=== PATIENT | male | born 1980 | race Two or more races ===

== ENCOUNTER 2021-04-04 21:13 | Inpatient (IN) | payer BC ==
[~2021-04-04] VITALS: Ht 188 cm; Wt 137.2 kg
[~2021-04-04 21:13] MED LIST: BLOOD GLUCOSE1 EAC1 MISC; CIPROFLOXACIN500 MG PO; KLOR-CON M2020 MEQ PO; LANCETS1 EAC2 MISC; LOMOTIL TABLET1 EACH PO; METFORMIN HCL500 MG PO; METRONIDAZOLE500 MG PO; NORVASC10 MG PO
[2021-04-04] MEDS ORDERED: ADVIL200 MG PO (21:40)
--- NOTE | 2021-04-05 03:11 | NUR ---
pt admitted to room 115 via stretcher from ED. pt ambulated to br, having loose stools, on room air. on Airborne isolation precautions
--- NOTE | 2021-04-05 03:15 | NUR ---
IN TO GET VITALS, PT BACK FROM THE TOILET, BACK TO BED
--- NOTE | 2021-04-05 04:23 | NUR ---
in to nafisa pt's phone off the floor, no further needs at this time
--- NOTE | 2021-04-05 04:51 | NUR ---
PT ADMITTEAD AT 0300, OON ROOM AIR, LUNGS CRACKLES AND WHEEZING T/O, NO SOB NOTED WITH EXERTION. IVF BOLUS STARTED IN ED COMPLETED, RECEIVED COVID ABG REAGENT IV MED. TOLERATED WELL, COVID+ AIRBORNE ISOLATION PRECAUTIONS IN PLACE. IVF INFUSING. HAD LOOSE STOOLS, DARK URINE. TOLERATING SIPS OF FLUIDS, NO C/O HSIEH OR N/V SINCE ADMIT. USES CALL LIGHT, ALERT AND ORIENTED
--- NOTE | 2021-04-05 06:30 | NUR ---
DR NAVARRETE NOTIFIED OF CRITICAL POTASSIUM LAB LEVEL OF 2.5. "OH OK, ILL WAIT FOR THE REST OF THE LEVELS AND THEN ASSESS"
--- NOTE | 2021-04-05 07:35 | NUR ---
REPORT RECEIVED FROM ASHISH DOSS. PT RESTING ON BACK WITH EYES CLOSED. RESPIRATIONS EVEN AND UNALBORED. O2 SATURATIONS 89-91% ON ROM AIR. HEART RATE REGULAR WITH HEAR RATE OF 65. PT ALLOWED TO REST AT THIS TIME. CALL LIGHT WITHIN REACH. BED RAILS UP.
--- NOTE | 2021-04-05 08:30 | NUR ---
update from Rn and Dr. Sifuentes in 829 meeting. No resp symptoms, not feeling well.
--- NOTE | 2021-04-05 09:06 | NUR ---
MORNING ASSESSMENT AND MEDICAITONS DUE. PT RESTING IN BED ON RIGHT SIDE. PT DENIES PAIN AND NAUSEA. IV IS NOT LOCATED IN RIGHT HAND, LOCATED IN RIGHT AC. WNL, NO S/S OF PHLEBITIS NOTED. LUNG SOUNDS MOSTLY CLEAR, DEMINISHED IN LOWER LOBES. SMALL INSPIRATORY WHEEZE NOTED AT TIME ON RIGHT SIDE. PRONING EDUCATION DONE WITH PT. PT VERBALIZES UNDERSTANDING AND STATES HE PLANS TO PRONE LATER TODAY. I.S. PROVIDED. PT ABLE TO REACHE 1250 X4. COUGH INCREASED WITH IS USE, COUGH NOW PRODUCTIVE WITH CLEAR SPUTUME NOTED. PT REMAINS ON ROOM AIR WITH O2 SATURATIONS 91-96%. DIARRHEA CONTINUES WITH ADDITIONAL LARGE LIQUID BROWN STOOL NOTED THIS MORNING. PT HAS DEPENDS IN PLACE AND SMALL INCONTINANT EPISODES HAPPEN. NO UNSUSAL MUSCLE TWITCHES NOTED. PT DENIES LEG CRAMPS. NEGATIVE CHVOSTEK SIGN. PT SITTING ON EDGE OF BED TO EAT BREAKFAST. NO ADDITIONAL REQEUSTS OR COMPLAINTS. CALL LIGHT WIHTIN REACH. BED RAILS UP.
--- NOTE | 2021-04-05 10:46 | NUR ---
THIS RN TO ROOM TO CHECK ON PT. PT RESTING ON RIGHT SIDE WITH EYES CLOSED. PT ENCORUAGED TO PRONE. VITAL SIGNS STABLE. PT ASSISTED INTO PRONE POSITION, SUPPORTED WITH PILLOWS. OXGYEN SATURATIONS 90-95% ON ROOM AIR. CALL LIGHT WITHIN REACH. BED RAILS UP. PT DENIES ADDITIONAL REQUESTS OR COMPLAINTS.
--- NOTE | 2021-04-05 11:25 | NUR ---
MD UPDATED ON PTS STATUS AND TEMPERATURE. NO NEW ORDERS. TYLENOL AND COUGH MEDICATION GIVEN. PT COUGHING FREQUENTLY WITH OCCATIONAL CLEAR THICK SPUTUM. OXYGEN SATURATIONS 90-94% ON ROOM AIR. CALL LIGHT WITHIN REACH. BED RAILS UP. NO ADDITIONAL REQUESTS OR COMPLAINTS.
--- NOTE | 2021-04-05 11:59 | NUR ---
LAB CALLED TO CONFIRM THAT THEY WILL DRAW 1200 LABS. TECHNITIAN STATES THEY WILL BE DOWN SHORTLY TO DRAW LABS.
--- NOTE | 2021-04-05 13:17 | NUR ---
THIS RN TO ROOM TO CHECK ON PT. PT RESTING ON RIGHT SIDE WITH EYES CLOSED, RESPIRATIONS EVEN AND UNLABORED. OXYGEN SATRUATION OF 94% ON ROOM AIR. PT HAS REMOVED TELEMETRY MONITORING STICKERS. NEW STICKERS PLACED. TEMPERATURE REASSESED, REMAINS ELEVATED. ADDITIONAL MEDICATION GIVEN (SEE MAR). ICE WATER REFILLED. NO ADDITIONAL REQUESTS OR COMPLAINTS. CALL LIGHT WITHIN REACH. BED RAILS UP.
--- NOTE | 2021-04-05 13:20 | NUR ---
MD UPDATED ON PTS STATUS AND FEVER. NEW ORDERS GIVEN FOR IBUPROFEN. ORDERS ENTERED. TO BE GIVEN BY CHARGE NURSE, NOAH, WHEN VARIFIED.
--- NOTE | 2021-04-05 13:30 | NUR ---
PTS DAVID, CALLED FOR UPDATE. DAVID STATES PTS IS "PRETTY CONFUSED" AND PT HAS BEEN REPORTING THINGS THAT ARE NOT TRUE. DAVID UPDATED ON PTS CONDITION. DAVID STATES HER QUESTIONS HAVE BEEN ANSWERED.
--- NOTE | 2021-04-05 13:39 | NUR ---
DR NAVARRETE CALLED TO INQUIRE IF IBUPROFEN IS OK TO GIVE WITH PTS KIDNEY STATUS. AWAITING CALL BACK.
--- NOTE | 2021-04-05 14:00 | NUR ---
CALL MADE TO DR LANDON BECK. DR MERCERED USE FOR FEVER. PT TEMP RECHECKED AT 102.9. 400MG MOTRIN ADMISNTERED. NEW NS BAG HUNG. PT WITH LOOSE BM AND 300ML URINE OUTPUT. DENEIS ANY NEEDS. WILL CONTINUE TO MONITOR.
--- NOTE | 2021-04-05 14:20 | NUR ---
AFTERNOON ASSESSMENT DUE. THIS RN TO ROOM. CHARGE NURSE STATES SHE SPOKE WITH MD AND WAS CLEARED TO GIVE IBUPROFEN. COUGH SYRUP ALSO GIVEN. THIS RN TO ROOM. PT RESTING ON RIGHT SIDE. HEAD OF BED ELEVATED TO 23 DEGREES. PT DENIES PAIN AND NAUSEA. PT REPORTS HE HAS ONE EPOSODE OF EMESIS THIS MORNING AFTER EATING BREAKFAST. PT ADVISED TO INFORM NURSING STAFF IF NAUSEA OR EMESIS RETURNS. IV CONTINUES INFUSING INTO RIGHT AC (NOT RIGHT HAND), WNL, NO S/S OF PHLEBITIS NOTED. PTS REORTED OVER [facility] PHONE THAT PT HAS BEEN CONFUSED. PT ORIENTED TO ALL AT THIS TIME AND COMMUNICATING CLEARLY AND APPROPRIATLY. PT REPORTS "I HAD FOGGY THINKING WHEN THIS ALL STARTED." WILL CONTINUE TO MONITOR. LUNG SOUND CLEAR IN UPPER LOBES WITH COURSE SOUNDS NOTED IN BASES. OXYGEN SATURATION 89-94% ON ROOM AIR, CPOX IN PLACE. PT REACHES 1500ML ON I.S. X5 WITH USE ENCORUAGED BY THIS RN. PT REPORTS COUGH IS "BETTER" AFTER TAKING COUGH MEDICATION. DIARRHEA CONTINUES WITH ADDITIONAL LIGHT BROWN LIQUID STOOL NOTED THIS AFTERNOON. PT REPORS "A LITTLE" IMPROVEMENT WITH DIARRHEA AND STATES HE IS NOW "PASSING FRAN INSTEAD OF JUST POOP." DEPENDS REMAIN IN PLACE. PT ENCORUAGED TO PRONE THIS AFTERNOON, DECLINES AT THIS TIME. CALL LIGHT WITHIN REACH. BED RAILS UP. NO ADDITIONAL REQUESTS OR COMPLAINTS.
--- NOTE | 2021-04-05 14:35 | EKG ---
[facility] [address] [place], [place] [address] Signed No QRS complexes found, no ECG analysis possible No previous ECGs available Confirmed by YESSI NAVARRETE MD ([id number]) on 04/05/2021 2:35:12 PM Electronically Signed By: YESSI NAVARRETE MD 04/05/21 1435 PATIENT NAME: KARSON MELCHOR [facility] Electrocardiogram DATE OF : 84 PHYSICIAN: YESSI NAVARRETE MD REPORT #: [id number] REPORT IS CONFIDENTIAL AND NOT TO BE RELEASED WITHOUT AUTHORIZATION
--- NOTE | 2021-04-05 15:05 | NUR ---
CONTINUOUS PULSE OX ALARMING. THIS RN TO ROOM. MONITOR IN ROOM STATES 92% TELEMETRY MONITORING STATES 87%. TELEMETRY UNIT CHANGED. NO CHANGES IN OXYGENATION. PT PLACED ON 2L O2 BY IN WITH OXGYEN SATRUATIONS ABOVE 90% ON BOTH MONITORS. CURRENTLY 91% ON 2L O2 BY IN. TEMPERATURE REASSESSED, NOW 101.3 DEGREES FARINHEIGHT. PT ASSISTED INTO PRONING POSITON WITH OXYGEN SATURATIONS CLIMBING TO 95%. NO ADDITIONAL REQUESTS OR COMPLAINTS. CALL LIGHT WITHIN REACH. BED RAILS UP.
--- NOTE | 2021-04-05 16:31 | NUR ---
THIS RN TO ROOM TO CHECK ON PT. PT RESTING IN BED ON BACK WITH HEAD OF BED ELEVATED TO 21 DEGREES. PT ALERT AND OREINTED AND STATES HE FEELS "MUCH BETTER." TEMPERATURE REASSESSED, NOW 97.9 DEGREES FARIENHEIGHT. OXYGEN SATURATIONS 90-93% ON 2L O2 BY NC. PT DEMONSTRATUES USE. OF I.S. REACHING 1750 X1 AND 1500 X2. MEDICATIONS GIVEN. PT DENIES ADDITIONAL REQUESTS OR COMPLAINTS. CALL LIGHT WITHIN REACH. BED RAILS UP.
--- NOTE | 2021-04-05 16:42 | NUR ---
MED REC COMPLETE
--- NOTE | 2021-04-05 17:30 | NUR ---
CALLED FOR UPDATE ON PT STATUS. MD REQUESTS PT BE WEANED TO ROOM AIR TO SEE HOW OXYGENATION MAINTAINS WHILE AWKAE. THIS RN TO ROOM. PT WEANED TO ROOM AIR WITH OXYGEN SATRUATIONS 93-95% ON ROOM AIR. PT REMAINS ON ROOM AIR AT THIS TIME. CALLED AND UPDATED. MEDICATIONS GIVEN. PT RESTING IN BED. WATCHING TV. DINNER ORDER PLACED. NO ADDITIONAL REQUESTS OR COMPLAINTS. CALL LIGHT WITHIN REACH.
--- NOTE | 2021-04-05 18:00 | NUR ---
PTS OXYGEN SATURATIONS DROPPING TO 89-90% WHILE AWAKE AND ON ROOM AIR. MD CALLED AND UPDATED. NEW ORDERS PLACED. PT PLACED BACK ON 2L O2 BY NC. MEDICATIONS GIVEN BY ASHISH SANTO. PT DENIES ADDITIONAL REQUESTS OR COMPLAINTS. OXYGEN SATURATIONS CLIMB TO 93% ON 2L O2 BY NC. PT AWAKEN AND WATCHING TV. CALL LIGHT WITHIN REACH. BED RAILS UP.
--- NOTE | 2021-04-05 18:32 | NUR ---
PTS DAUGHTER DAVID CALLED AND UPDATED ON PTS STATUS. DAVID STATES PT WAS ALTERNATING IBUPROFEN AND TYELNOL EVERY THREE HOURS AT HOME WELL [employer] AND [place]QU[place]. DAVID VERBALIZES UNDERSTANDING OF CURRENT THERAPIES. DAVID STATES HER QUESTIONS HAVE BEEN ANSWERED.
--- NOTE | 2021-04-05 18:39 | NUR ---
PT HERE FOR PEREZ, COVID, AND ELECTROLYTE IMBALANCES. PT UP WITH STAND BY ASSIST TO BEDSIDE COMODE AND RESTROOM THIS SHIFT. PT HAVING FREQUENT BOUTS OF DIARRHEA. PT TOELRATING REGUALR DIET WITH MINIMAL APPITITE. PT REMAINS ON TELEMETRY MONITORING WITH NORMAL SINUS RHYTHEM NOTED SO FAR THIS SHFIT. PT PLACE DON 2L O2O BY NC AFTER DROPING TO 87-91% ON ROOM AIR EVEN WHILE AWAKE. DEXAMETHASONE STARTED, REMDESIVIR ORDERED. IV HYDRATION CONTINUES. PT REPORTS ONE EPSIDOE OF EMESIS THIS SHIFT, UNWITNESSED. PRN PAIN MEDICATIONS GIVEN FOR FEVER. PT VODING QUANTITY SUFFICIENT. PTS FAMILY UPDATED X2. PT PARTICIPATING IN PRONING PROTOCOLS AND USES CALL LIGHT APPRPRIATLY.
--- NOTE | 2021-04-05 19:24 | NUR ---
REPORT GIVEN TO ASHISH DOSS WHO IS ASSUMING CARE OF PT.
--- NOTE | 2021-04-05 21:08 | NUR ---
alert and oriented, O2 2LNC, lungs with crackles bilat. moist productive cough of thick yellow oral drainage. medicated with robitussin syrup. sl intact, ivf infusing, abd large soft, HEA, having liquid yellow-brown liquid stool, urine QS, dark yellow. cpox tele#[address] sats 94%. no sob with exertion noted. watching tv, much better affect, staed "I feel better". aware of proning positions and stated "I been doing it"
--- NOTE | 2021-04-05 22:31 | NUR ---
cont to have moist occasional productive cough, received robitussin syrup earlier, partially effective, on 2LNC, telecpox#[address] SR, sat 95% watching tv. IV NS infusing, denies sobwith exertion or sob, no CP
--- NOTE | 2021-04-06 00:05 | NUR ---
hacky ocassional dry/moist cough noted, no emesis. laying on L sided proning posioning, cooperative, awakes easily, denies c/o pain or sob. using urinal, voiding QS dark yellow urine. goes back to sleep, ivf infusing. tele#2 cpox at 93% on 2L NC.
--- NOTE | 2021-04-06 01:05 | NUR ---
talked to pts Jimena . update on pt given.
--- NOTE | 2021-04-06 01:29 | NUR ---
on 2l nc. lungs dim at bases crackles r side, cough present. denies need for more cough syrup, ivf infusing, tele/cpox in place sats 93% 2LNC, no c/o cp , no sob when up for voiding.
--- NOTE | 2021-04-06 02:16 | NUR ---
prones himself, O2 2LNC, IVF infusing, voiding medium colored urine. cough still present, declilnes cough syrup at this time. no sobwith exertion. tele#[address] sats 92%.
--- NOTE | 2021-04-06 04:11 | NUR ---
Pt continues on airborne isolation precautions. On 2LNC, tele cpox in place SR sats 90-93%, No sob noted when up to bsc. Lungs with crackles and occasional wheeze R lungs medicated with robitussin cough syrup x1, partially effective, productive cough of mireles-yellow colored sputum. no emesis this shift. tolerating sips of fluids and several Jello's. tolerated well. Continues to have liquid stools, received 2 doses of po potassium 30mEq. IVF infusing w/o problems, alert and oriented. called this unit and report given to her as it was ok by pt. turns and repositions self, IS at bedside, encouraged to use proning positions, partially receptive to idea as proning increases his cough, explained to pt, and has been trying to do proning positining. cont to reinforce
--- NOTE | 2021-04-06 07:17 | NUR ---
REPORT RECEIVED FROM ASHISH DOSS. PT RESTING ON RIGHT SIDE WITH EYES CLOSED. RESPIRATIONS EVEN AND UNLABORED. O2 SATURATION OF 90-93% ON 1L O2 BY NC. HEART RATE OF 60 IN NORMAL SINUS RHYTHEM BY TELEMETRY MONITORING. BED RAILS UP. CALL LIGHT WITHIN REACH. PT ALLOWED TO REST UNDESTRUBRED.
--- NOTE | 2021-04-06 08:41 | NUR ---
MORNING ASSESSMENT AND MEDICATION DUE. PT RESTING IN BED ON BACK WITH EYES CLOSED. PT DENIES PAIN AND NAUSEA. PT ALERT AND ORIENTED AND ANSWERING QUESTIONS APPROPIRATLY. LUNGS SOUNDS CLEAR IN UPPER LOBES, DEMINISHED IN LOWER LOBES. PT WEANED TO ROOM AIR, TOLERATING ROOM AIR WITH OXYGEN SATURATIONS ABOVE 90%. PT INITIALLY DECLINES COUGH MEDICATION BUT THEN COUGH INCREASES WITH MORNING CARES PT REQUESTS TO TAKE COUGH MEDICAITON. SEE MAR FOR MEDICATION GIVEN. PT DEMONSTRATES USE OF I.S. REACHING 1750 X2. SINUS RHYTHEM REMAINS ON TELEMETRY MONITORING. PT REPOTS DIARRHEA IS IMPROVING, LAST BOWEL MOVEMENT LATE LAST NIGHT. PT DENIES NAUSEA OR ADDITIONAL EMESIS. STAND BY ASSIST UP TO CHAIR FOR BREAKFAST. CALL LIGHT WITHIN REACH. NO ADDITIONAL REQUESTS OR COMPLAINTS AT THIS TIME.
--- NOTE | 2021-04-06 09:14 | NUR ---
PULSE OX ALARMING PT IS UP TO CHAIR, WITH OXYGEN SATURATIONS 84-88%. PT PLACED BACK ON 2L O2 BY NC. OXYGEN SATURATIONS CLIMB TO 90-92%. PT EAING BREAKFAST. NO ADDITIONAL REQUESTS OR COMPLAINTS. CALL LIGHT WITHIN REACH.
--- NOTE | 2021-04-06 09:38 | NUR ---
NEW MEDICATION ORDERS. IV SALINE LOCKED PER MD ORDER, ALCOHOL CAP APPLIED. MEDICATIONS GIVEN. PT HAS ALRADY EATEN BREAKFAST SO NO CBG WAS TAKEN. INSULIN GIVEN BASED ON MORNING LAB DRAW GLUCOSE OF 255, 3 UNITS GIVEN. PTS DAVID UPDATED ON PTS STATUS, NEW ORDERS, AND PLAN OF CARE. DAVID STATES HER QUESTIONS HAVE BEEN ANSWERED. PT REMAINS UP TO CHAIR. O2 AT 2L BY NC REMAINS IN [place] WITH OXYGEN SATURATIONS 90-92%. NO ADDITIONAL REQUESTS OR COMPLAINTS. CALL NICHOLAS MORROW.
--- NOTE | 2021-04-06 09:39 | NUR ---
UPDATE PROVIDED TO DAVID OVER THE PHONE. PLAN OF CARE, LAB VALUES, VITAL SIGNS ALL DISCUSSED. THEN TRANSFERED PHONE CALL TO ROOM SO SHE COULD SPEAK TO HER .
--- NOTE | 2021-04-06 10:20 | NUR ---
THIS RN TO ROOM WITH MD FOR ROUNDS. PT REMAINS ON 2L O2 BY NC WHILE UP TO CHAIR. OXYGEN SATURATIONS 89-92%. PT REPORTS HE IS FEELING "BETTER" TODAY. NO ADDITIONAL REQUESTS OR COMPLAINS. CALL LIGHT WITHIN REACH. PT ADVISED TO CALL WHEN HE IS READY TO SHOWER.
--- NOTE | 2021-04-06 12:07 | NUR ---
THIS RN TO ROOM TO CHECK ON PT. PT FINISHED WITH SHOWER AND UP TO CHAIR. O2 AT 91% ON 2L O2 BY NC. PT DENIES PAIN AND NAUSEA. PT REPORTS SHOWER WAS "EXHAUSTING." BLOOD SUGAR TAKE, INSULIN GIVEN. PT EATING LUNCH. TELE DC'D PER MD ORDER. CPOX REMAINS IN PLACE. MEDICAITONS GIVEN (SEE MAR).NO ADDITIONAL REQUESTS OR COMPLAINTS. CALL LIGHT WITHIN REACH.
--- NOTE | 2021-04-06 13:31 | NUR ---
AFTERNOON ASSESSMENT AND MEDICATION DUE. PT REMAINS UP TO CHAIR. TALKING ON PHONE. PT REPORTS HE IS FEELING "MUCH BETTER TODAY." PT CLARIFIES STATING "I HAVE MORE ENERGY, I'M NOT ACHY, AND MY APPITITE IS IMPROVING." PT DENIE PAIN OR NAUSEA. ABLE TO EAT 50% OF LUNCH. PT ALERT AND ORIENTED. LUNG SOUND CLEAR. CONTINUE TO BE DEMINISHED IN BASES. O2 NOTED TO BE 95% ON 2L. ROOM AIR TRIAL PEFORMED. PT ABLE TO MAINTAIN OXYGEN SATRUATIONS 90-92% ON ROOM AIR. I.S. USE DEMONSTRATED, PT REACHES 1750 X4 AND 2000ML X1. COUGH INCREASES WITH I.S. USE, COUGH MEDICAITON GIVEN (SEE MAR). PT REPORTS DIARRHEA IS IMPROVING, "ITS A LITTLE BIT DIFFERENT, LESS WATER." PT REMAINS ON ROOM AIR AT THIS TIME. ADVISED TO CALL NURSING STAFF IF HE WANTS TO GET UP AN MOVE AROUND ROOM. PT REMAINS UP TO CHAIR. CALL LIGHT WITHIN REACH.
--- NOTE | 2021-04-06 14:00 | NUR ---
Pt states he lives in [place] with 2 roommates and is isolating. His also lives in [place] and he calls her to find his insurance an his pcp. Pt has [facility]el[facility] and Dr Hendrix was his pcp, pt had not seen in [address] Hendrix and he request I find a \ at the clinic for this pt. Pt states he has 3 steps into his apart- ment and no issues with steps. He has weaned off of 02. He plans on dc to home to isolate in his apartment. will assist him as need ed.
--- NOTE | 2021-04-06 15:34 | NUR ---
THIS RN TO ROOM TO CHECK ON PT. PT REMAINS UP TO CHAIR. OXYGEN SATURATION REMAINS 90-93% ON ROOM AIR. PT DENIES PAIN AND NAUSEA. REQUESTS TRACEY ISSA. NO ADDITIONAL REQUESTS OR COMPLAINTS. I.S. USE DEMONSTRATED, REACHING 1750 X3.
--- NOTE | 2021-04-06 15:50 | NUR ---
PT HERE FOR PEREZ, ELECTROLYTE IMBANANCES, AND COVID RELATED PNEUMONIA. PT UP WITH STAND BY ASSIST THIS SHIFT FOR SHOWER AND TO CHAIR FOR MOST OF SHIFT. PT TOELRATING 60G CARB DIET WITH IMPROVING APPITITIE. TELEMETRY MONITORING DC'D, CONTINIOUS PULSE OX REMAINS IN PLACE. LUNG SOUND CLEAR TO DEMINISHED. PT WEANED TO ROOM AIR THIS HSIFT AND TOELRTING ROOM AIR WELL WITH O2 SATURATIONS ABOVE 90%. DIARRHEA IMPROVING, PT REPORTS ONLY ONE EPISODE SO FAR THIS SHIFT, WHICH WAS LESS LOOSE. BLOOD SUGAR ELEVATED, CBG CHECKS WITH SLIDING SCALE INSULIN ADDED TO ORDERS. ELECTOLYTES IMPROVING, ORAL REPLACEMENTS GIVEN, IV NOW SALINE LOCKED. PT AFEBRIAL SO FAR THIS SHIFT. PT VOIDING QUANTITY SUFFICIENT. PT USES CALL LIGTH AND MAKES NEEDS KNOWN.
--- NOTE | 2021-04-06 15:56 | NUR ---
Called and spoke with senior master scheduler at clinic. She will contact Dr. Adler to see if he will take this pt.
--- NOTE | 2021-04-06 17:27 | NUR ---
THIS RN TO ROOM TO CHECK ON PT. PT REMAINS UP TO CHAIR. O2 SATURATIONS REMAIN ABOVE 90% ON ROOM AIR. INSULIN GIVEN (VARIFIED BY ASHISH ZAMORA). PT EATING DINNER. DENIES ADDITIONAL REQUESTS OR COMPLAINTS. CALL NICHOLAS MORROW.
--- NOTE | 2021-04-06 18:41 | NUR ---
THIS RN TO ROOM TO CHECK ON PT. PT REMAINS UP TO CHAIR. OXYGEN SATURATION 91% ON ROOM AIR. PT DENIES PAIN AND NAUSEA. NO REQUESTS OR COMPLAINTS. INDEPENDANT UP TO VOID IN RESTROOM. CALL LIGHT WIIN REACH.
--- NOTE | 2021-04-06 18:54 | NUR ---
THIS RN CONFIRMED WITH LAB THAT A1C LAB ORDER HAS BEEN DRAWN AND SENT FOR PROCESSING. CARMELITA LAB TECHNITIAN STATES LAB RESULTS SHOULD RETURN IN A FEW DAYS.
--- NOTE | 2021-04-06 19:37 | NUR ---
RECEIVED REPORT FROM MIKA HINOJOSA ABOUT PATIENT. PATIENT IS COVID POSITIVE ADITTED FOR PEREZ. PATIENT DENIES ANY COMPLAINTS OR NEEDS AT THIS TIME. PATIENT SITTING UPRIGHT IN CHAIR IN ROOM. ON 2 LITERS O2 WJEN SLEEPING, SATS FINE ON ROOM AIR WHEN AWAKE, WILL MONITOR. CALL LIGHT IN REACH
--- NOTE | 2021-04-06 20:21 | NUR ---
up in chair, tele#[address], watching tv, no c/o pain, moist non prod cough present, denies need ofr cough syrup, on room air
--- NOTE | 2021-04-06 21:45 | NUR ---
PATIENT REQUESTED SOME PRN COUGH MEDICINE PRIOR TO GOING TO BED. PATIENT GEIVEN THIS SEE EMAR. PATIENT TO BED CALL LIGHT IN REACH. NO OTHER NEEDS.
--- NOTE | 2021-04-06 23:46 | NUR ---
IN ROOM TO MEDICATE PATIENT WITH HIS POTASSIUM, SEE EMAR. LIGHTS ARE ON PER PATIENT HE IS AWAKE WATCHING TV. ASKED PATIENT HOW HE IS DOING STATES "OK JUST TRYING TO GET THIS THING TO WORK" REFERING TO HIS PHONE. PATIENT DENIES ANY NEEDS, DENIES PAIN OR NAUSEA. PATIENT SITTING IN CHAIR. ALERT AND ORIENTED, AMBULATORY STEADY ON FEET. CALL LIGHT IN REACH.
--- NOTE | 2021-04-07 05:20 | NUR ---
COLLECTED BLOOD SPECIMEN AND SENT TO LAB
--- NOTE | 2021-04-07 06:39 | NUR ---
PATIENT HAS NOT SLEPT MUCH TONIHGT WAS UP WALKING AROUND ROOM AND SITTING IN CHAIR AT TIMES PLAYING PHONE OR WATCHING TV. HAS REMIANED ON ROOM AIR ALL NIGHT. PATIENT FINALLY WENT TO BE LATE IN SHIFT. SATS STAYING MID 90'S ROOM AIR. TOOK COUGHING MEDS PRIOR TO ATTEMPTING BED AT 2200. RECEIVED ORAL POTASSIUM TWICE LAST NIGHT. 2050 ML URINE IN 24 HOURS, 5 UNMEASURED VOIDS.
--- NOTE | 2021-04-07 07:11 | NUR ---
REPORT RECEIVED FROM ASHISH GONZALES. PT RESTING IN BED ON BACK WITH EYES CLOSED. O2 SATURATIONS AT 90% ON ROOM AIR. RESPIRATIONS EVEN AND UNLABORED. PT ALLOWED TO REST. CALL LIGHT WITHIN REACH. BED RAILS UP.
--- NOTE | 2021-04-07 09:25 | NUR ---
MORNING ASSESSMENT AND MEDICATION DUE. THIS RN TO ROOM. PT RESTING IN BED ON BACK WITH EYES CLOSED. O2 SATURATIONS 90-93% ON ROOM AIR. PT AWAKENS TO VOICE. PT DENIES PAIN AND NAUSEA. IV ASSESSED, WNL, BRISK BLOOD RETURN NOTED. IV LOCATED IN RIGHT AC, NOT RIGHT HAND. PT UPDATED ON PLAN OF CARE AND VERBALIZES UNDERSTANDING. EDUCATION DONE WITH PT REGARDING USING URINAL TO VOID SO VOIDINGS CAN BE MEARSURED. PT VERBALIZES UNDERSTANDING, URINAL WITHIN REACH. ADDITIONAL URINAL IN RESTROOM. LUNG SOUNDS CLEAR, DEMINISHED IN BASES. I.S. USE ENCOURAGED. PT REACHES 1500ML X3. COUGH INCREASES AND PT DOES NOT WANT TO CONTINUE I.S. USE. COUGH MEDICATION GIVEN (SEE MAR). STAND BY ASSIST UP TO CHAIR, OXYGEN SATURATIONS 89-92% ON ROOM AIR WHILE UP TO CHAIR. PT REPORTS DIARRHEA CONTINUES WITH "A FEW" EPISODES LAST NIGHT WITH "SOME DEBREE IN IT." PT REPORTS DIARRHEA HAS IMPROVED SINCE ADMISSION. APPITITE IMPROVED. PT UP TO CHAIR EATING BREAKFAST. NO ADDITIONAL REQUESTS OR COMPLAINTS. CALL LIGHT WIHTIN REACH. ORAL HYDRATION ENCOURAGED.
--- NOTE | 2021-04-07 10:24 | NUR ---
THIS RN TO ROOM TO CHECK ON PT. PT FINISHING HOME OXYGEN TRIAL WITH RT JAN. PT ABLE TO MAINTAIN OXGYEN SATURATIONS ABOVE 90% EVEN WITH ACTIVITY. PT REMAINS ON ROOM AIR AT THIS TIME, UP TO CHAIR. OXGYEN SATRATION 90-95%. VITAL SIGNS STABLE. PT VOIDS 200ML CLEAR, LIGHT YELLOW URINE INTO URINAL. PT DENIES PAIN AND NAUSEA. NO ADDITIONAL REQUSTS OR COMPLAINTS. CALL LIGHT WIHTIN REACH. BED RAILS UP.
--- NOTE | 2021-04-07 10:31 | NUR ---
RETURN CALL PLACED TO DAVID, PTS , FOR UPDATE. DAVID UPDATED ON PTS STATUS AND PLAN OF CARE. DAVID VERBALIZES UNDERSTANDING AND STATES HER QUESTIONS HAVE BEEN ANSWERED.
--- NOTE | 2021-04-07 11:22 | NUR ---
THIS RN TO ROOM TO CHECK ONPT. PT RESTING IN BED ON RIGHT SIDE. PT DENIES PAIN AND NAUSEA. OXYGEN SATURATION 90-92% ON ROOM AIR. LUNCH ORDER PLACED FOR PT. PT DENIES ADDITIONAL REQUESTS OR COMPLANTS. CALL LIGHT WITHIN REACH.
--- NOTE | 2021-04-07 12:01 | NUR ---
LUNCH ARRIVED. BLOOD SUGAR TAKEN = 270. STAND BY ASSIST UP TO CHAIR FOR LUNCH. INSULIN GIVEN. PT DENIES ADDITIONAL REQUESTS OR COMPLAINTS. O2 REAMINS ABOVE 90% ON ROOM AIR. CALL LIGHT WITHIN REACH.
--- NOTE | 2021-04-07 12:30 | NUR ---
THIS RN TO ROOM WITH MD FOR ROUNDS. PT HAS DRESSED SELF, NO ASSISTANCE NEEDED AND IS UP TO CHAIR. PT HAS REMOVED PULSE OX, TEMPORARY PULSE OX SHOWS OXYGEN SATRATIONS FROM 92-98% ON ROOM AIR. PLAN FOR DISCHARGE, MEDICATIONS, A1C VAULES AND NEED FOR FOLLOW UP REVIEWED IN DETAIL WITH PT. PT VERBALIZES UNDERSTANDING OF PLAN OF CARE, DIAGNOSIES AND NEED FOR FOLLOW UP. PT REMAINS UP TO CHAIR, NO ADDITIONAL REQUESTS OR COMPLAINTS AT THIS TIME. CALL LIGHT WITHIN REACH.
[2021-04-07] MEDS ORDERED: DEXAMETHASONE6 MG PO (12:53)
[2021-04-07] MEDS ORDERED: GLIPIZIDE XL2.5 MG PO (12:54)
[2021-04-07] MEDS ORDERED: BLOOD GLUCOSE1 EAC8 MISC (12:55)
[2021-04-07] MEDS ORDERED: BLOOD GLUCOSE1 EAC1 MISC (12:55)
[2021-04-07] MEDS ORDERED: LANCETS1 EAC4 MISC (12:56)
--- NOTE | 2021-04-07 13:28 | NUR ---
PTS , DAVID, CALLED AND UPDATED ON PTS DISCHARGE AND INSTRUCTIONS FOR MEDICATIONS AND FOLLOW UP. DISCHRAGE INSTRUCTIONS, DIAGNOSIES, MEDICATIONS, AND FOLLOW UP REVIEWED WITH DAVID IN DETAIL. DAVID VERBALZIES UNDERSTANDING AND STATES HER QUESTIONS HAVE BEEN ANSWERED. DAVID PLANS TO PRESS TENDER STAR SIGNAL PT AT 1415.
--- NOTE | 2021-04-07 14:10 | NUR ---
PT READY FOR DISCHARGE, PT DRESSED SELF, NO ASSISTANCE NEEDED. IV DC'D BY THIS RN, WNL, KAYLYNN AND SOL APPLIED. DISCHARGE INSTRUCTIONS, MEDICATIONS, DIAGNOSEIS, AND FOLLOW UP REVIEWED IN DETAIL WITH PT WHILE PTS DAVID WAS ON SPEAKER PHONE. PT AND DAVID VERBALIZE UNDERSTANDING OF INSTRUCTIONS, MEDICAITONS, DIAGNOSES, FOLLOW UP, AND HOME CARE AND STATE THEIR QUESTIONS HAVE BEEN ANSWERED. PT TRANSFERSE SELF TO WHEELCHAIR. ALL BELONGINGS WITH PT. PT WHEELED FROM MED/SURG BY MARKETING COMMUNICATIONS MANAGER. NO ADDITIONAL REQUESTS OR CONCERNS.
== END 2021-04-07 14:20 | disposition home or self-care (01) | DRG 177 ==
LOC: ED 21:13 → MS 21:14
PROVIDERS: ADMIT Internal Medicine; ATTEND Internal Medicine
PROC: 3E0D73Z Introduction of Anti-inflammatory into Mouth and Pharynx, Via Natural or Artificial Opening (ICD-10-PCS; principal; 2021-04-05)
DX: U07.1 COVID-19 (principal); J12.82 Pneumonia due to coronavirus disease 2019; N17.0 Acute kidney failure with tubular necrosis; J96.01 Acute respiratory failure with hypoxia; I13.0 Hypertensive heart and chronic kidney disease with heart failure and stage 1 through stage 4 chronic kidney disease, or unspecified chronic kidney disease; A08.39 Other viral enteritis; I25.10 Atherosclerotic heart disease of native coronary artery without angina pectoris; E86.0 Dehydration; E83.51 Hypocalcemia; E11.65 Type 2 diabetes mellitus with hyperglycemia; E11.22 Type 2 diabetes mellitus with diabetic chronic kidney disease; N18.9 Chronic kidney disease, unspecified; T38.0X5A Adverse effect of glucocorticoids and synthetic analogues, initial encounter; T39.315A Adverse effect of propionic acid derivatives, initial encounter; E87.6 Hypokalemia; I50.9 Heart failure, unspecified; I25.2 Old myocardial infarction; Z87.891 Personal history of nicotine dependence
CPT/HCPCS: 71045; 80048; 80053; 80069; 80076; 83735; 93005; 93010; 94760; 94761; A9270; J1650; J1815; J3475; J7030; J7121; Q0244

== ENCOUNTER 2021-07-18 13:55 | Inpatient (IN) | payer BC ==
[~2021-07-18] VITALS: Ht 188 cm; Wt 147.1 kg
[~2021-07-18 13:55] MED LIST changes: +ADVIL200 MG PO; +BLOOD GLUCOSE1 EAC8 MISC; +DEXAMETHASONE6 MG PO; +GLIPIZIDE XL2.5 MG PO; +LANCETS1 EAC4 MISC
[2021-07-18] MEDS ORDERED: SPIRONOLACTONE25 MG PO (14:23)
[2021-07-18] MEDS ORDERED: AMLODIPINE BESYL5 MG PO (14:24)
[2021-07-18] MEDS ORDERED: K-TAB ER20 MEQ PO (21:00)
--- NOTE | 2021-07-19 18:57 | EKG ---
[facility] [address] [facility] [place] [address] Signed Normal sinus rhythm T wave abnormality, consider lateral ischemia Prolonged QT Abnormal ECG Confirmed by YESSI NAVARRETE MD ([id number]) on 07/19/2021 6:56:53 PM Electronically Signed By: YESSI NAVARRETE MD [id number] PATIENT NAME: KARSON MELCHOR Electrocardiogram DATE OF : 84 PHYSICIAN: YESSI NAVARRETE MD REPORT #: [id number] REPORT IS CONFIDENTIAL AND NOT TO BE RELEASED WITHOUT AUTHORIZATION
[2021-07-20] MEDS ORDERED: SPIRONOLACTONE25 MG PO (11:14)
[2021-07-20] MEDS ORDERED: AMLODIPINE BESYL5 MG PO (11:14)
[2021-07-20] MEDS ORDERED: DOXYCYCLINE HY100 MG PO (11:14)
[2021-07-20] MEDS ORDERED: BLOOD GLUCOSE1 EACH TOP (11:22)
[2021-07-20] MEDS ORDERED: ACCU-CHEK1 EAC1 TOP (11:25)
[2021-07-20] MEDS ORDERED: BLOOD GLUCOSE1 EAC1 TOP (11:25)
== END 2021-07-20 12:24 | disposition home or self-care (01) | DRG 193 ==
LOC: ED 13:55 → MS 18:37
PROVIDERS: ADMIT Internal Medicine; ATTEND Internal Medicine
DX: J13 Pneumonia due to Streptococcus pneumoniae (principal); I50.23 Acute on chronic systolic (congestive) heart failure; I13.0 Hypertensive heart and chronic kidney disease with heart failure and stage 1 through stage 4 chronic kidney disease, or unspecified chronic kidney disease; Z20.822 Contact with and (suspected) exposure to COVID-19; J18.9 Pneumonia, unspecified organism; N18.30 Chronic kidney disease, stage 3 unspecified; I25.10 Atherosclerotic heart disease of native coronary artery without angina pectoris; I25.2 Old myocardial infarction; Z87.891 Personal history of nicotine dependence; Z79.899 Other long term (current) drug therapy
CPT/HCPCS: 71045; 80048; 80053; 83605; 83735; 83880; 84484; 85025; 85379; 93005; 93010; 94640; 94667; 94668; 94760; C9803; J0456; J0696; J1650; J1815; J1940; J7060; U0003

== ENCOUNTER 2021-09-30 23:26 | Inpatient (IN) | payer BC ==
[~2021-09-30] VITALS: Ht 188 cm; Wt 147.1 kg
[~2021-09-30 23:26] MED LIST changes: +ACCU-CHEK1 EAC1 TOP; +AMLODIPINE BESYL5 MG PO; +BLOOD GLUCOSE1 EAC1 TOP; +BLOOD GLUCOSE1 EACH TOP; +DOXYCYCLINE HY100 MG PO; +K-TAB ER20 MEQ PO; +SPIRONOLACTONE25 MG PO
--- OUTSIDE RECORDS SUMMARY | 2021-09-30 23:30 | XMS ---
PreManage Notification: KARSON MELCHOR Security [employer] Machine Events No recent Security Events currently on file CRITERIA MET - ED - Positive COVID-19 Lab Result - [facility] PROVIDERS There are no care providers on record at this time. Ivana has no Care Guidelines for this patient. [place] VISIT COUNT (12 MO.) 3 TRINA Rod TOTAL 3 NOTE: Visits indicate total known visits. ED/C VISIT TRACKING (12 MO.) 09/30/2021 23:26 [facility] [place] TYPE: Emergency COMPLAINT: - SHORTNESS OF BREATH 07/18/2021 13:56 [facility] TYPE: Emergency COMPLAINT: - SOB 04/04/2021 21:13 [facility] TYPE: Emergency COMPLAINT: - OXYGEN PROBLEM INPATIENT VISIT TRACKING (12 MO.) 07/18/2021 18:37 [facility] TYPE: Medical Surgical COMPLAINT: - PNEUMONIA DIAGNOSES: - Acute on chronic systolic (congestive) heart failure - Old myocardial infarction - Chronic kidney disease, stage 3 unspecified - Atherosclerotic heart disease of [place] coronary artery without angina pectoris - Other residential (current) drug therapy - Pneumonia, unspecified organism - Atherosclerotic heart disease of [place] coronary artery without angina pectoris - Acute on chronic systolic (congestive) heart failure - Pneumonia due to Streptococcus pneumoniae - Personal history of nicotine dependence - Other residential (current) drug therapy - Chronic kidney disease, stage 3 unspecified - Pneumonia due to Streptococcus pneumoniae - Hypertensive heart and chronic kidney disease with heart failure and stage 1 through stage 4 chronic kidney disease, or unspecified chronic kidney disease - Hypertensive heart and chronic kidney disease with heart failure and stage 1 through stage 4 chronic kidney disease, or unspecified chronic kidney disease - Personal history of nicotine dependence - Old myocardial infarction 04/05/2021 05:27 [facility] [place] TYPE: Medical Surgical COMPLAINT: - ACUTE KIDNEY INJURY,HYPOLCALEMIA,COVID DIAGNOSES: - Heart failure, unspecified - Atherosclerotic heart disease of [place] coronary artery without angina pectoris - Chronic kidney disease, unspecified - Old myocardial infarction - Hypertensive heart and chronic kidney disease with heart failure and stage 1 through stage 4 chronic kidney disease, or unspecified chronic kidney disease - Other viral enteritis - Acute respiratory failure with hypoxia - Old myocardial infarction - Hypokalemia - Hypocalcemia - Chronic kidney disease, unspecified - Type 2 diabetes mellitus with diabetic chronic kidney disease - Adverse effect of propionic acid derivatives, initial encounter - Type 2 diabetes mellitus with diabetic chronic kidney disease - Adverse effect of propionic acid derivatives, initial encounter - Personal history of nicotine dependence - Hypocalcemia - Hypertensive heart and chronic kidney disease with heart failure and stage 1 through stage 4 chronic kidney disease, or unspecified chronic kidney disease - Acute kidney failure with tubular necrosis - Personal history of nicotine dependence - Adverse effect of glucocorticoids and synthetic analogues, initial encounter - Adverse effect of glucocorticoids and synthetic analogues, initial encounter - Type 2 diabetes mellitus with hyperglycemia - Dehydration - Hypokalemia - COVID-19 - Other viral enteritis - Heart failure, unspecified - Type 2 diabetes mellitus with hyperglycemia - Atherosclerotic heart disease of [place] coronary artery without angina pectoris - Acute respiratory failure with hypoxia - Dehydration - Acute kidney failure with tubular necrosis [email or web address]
[2021-09-30] MEDS ORDERED: NORVASC5 MG PO (23:38)
--- NOTE | 2021-10-01 01:56 | NUR ---
PATIENT ASSESSMENT COMPLETE. PATIENT IS ALERT AND ORIENTED X4. PATIENT IS UNDERSTANDING OF CURRENT ILLNESS. LUNG SOUNDS HAVE CRACKLES THROUGHOUT. PATIENT IS HAVING PINK TINGED SPUTUM. SAMPLE COLLECTED AND SENT TO LAB. DENIES FEELING SHORT OF BREATH. PATIENT IS ON 2 LITERS NASAL CANULA. RR IS 18-25. OXYGEN SATURATIONS ARE 90-95%. HEART RATE 90-95 SINUS RHYTHM. AFEBRILE. URINE IS CLEAR AND YELLOW. NO BM. BM EARLIER IN ED. DENIES ANY NAUSEA. BOWEL TONES ARE ACTIVE. NO PAIN AT THIS TIME. SKIN INTACT. SCABS ON BLE. GENERALIZED EDEMA IN THE BLE. IV SITE PATENT. CMST INTACT. NO QUESTIONS AT THIS TIME. CALL LIGHT WITHIN REACH NO FUTHER NEEDS.
--- NOTE | 2021-10-01 03:00 | NUR ---
PATIENT RESTING IN BED. BREATHING EQUAL AND UNLABORED. PATIENT HAS 2 LITERS NASAL CANULUA. OXYGEN SATURATIONS 90-95%. RR 18-22. CALL LIGHT WITHIN REACH NO FUTHER NEEDS.
--- NOTE | 2021-10-01 04:00 | NUR ---
PATIENT ASLEEP. DEFER ASSESSMENT TILL LATER. PATIENT ON 2 LITERS OF OXYGEN VIA CANULA. OXYGEN SATURATIONS ARE 90-95%. RR 18-25. BREATHING EQUAL AND UNLABORED. NO QUESTIONS AT THIS TIME. CALL LIGHT WITHIN REACH NO FUTHER NEEDS.
--- NOTE | 2021-10-01 05:00 | NUR ---
PATIENT ASSESSMENT COMPLETE. PATIENT IS ALERT AND ORIENTED X4. PATIENT LUNG SOUNDS HAVE CRACKLES THROUGHOUT. OXYGEN IS AT 2 LITERS VIA NASAL CANULUA. OXYGEN SATURATIONS ARE 90-95%. RR 18-25. BREATHING EQUAL AND CAN BE LABORED WITH ACTIVITY. HEART RATE IS 90-100 BPM SINUS RYHTHM. AFEBRILE. URINE OUTPUT IS YELLOW AND CLEAR. NO BM. BOWEL TONES ACTIVE. IV SITE PATENT. SKIN INTACT. NO QUESTIONS AT THIS TIME. CALL LIGHT WITHIN REACH NO FUTHER NEEDS.
--- NOTE | 2021-10-01 06:00 | NUR ---
PATIENT RESTING IN BED. BREATHING EQUAL AND UNLABORED. OXYGEN AT 2 LITERS. OXYGEN SATURATIONS 90-95%. RR IS 18-25. NO QUESTIONS AT THIS TIME. CALL LIGHT WITHIN REACH NO FUTHER NEEDS.
--- NOTE | 2021-10-01 06:55 | EKG ---
[facility] [address] [facility] [place] [address] Signed Sinus tachycardia Possible Left atrial enlargement Left axis deviation Nonspecific T wave abnormality Abnormal ECG When compared with ECG of 18-JUL-2021 15:35, No significant change was found Confirmed by YESSI NAVARRETE MD ([id number]) on 10/01/2021 6:55:16 AM Electronically Signed By: YESSI NAVARRETE MD 10/01/21 0655 PATIENT NAME: MELCHORKARSON Electrocardiogram DATE OF : 84 PHYSICIAN: YESSI NAVARRETE MD REPORT #: [id number] REPORT IS CONFIDENTIAL AND NOT TO BE RELEASED WITHOUT AUTHORIZATION
--- NOTE | 2021-10-01 07:30 | NUR ---
REPORT RECEIVED FROM KAYE HINOJOSA.
--- NOTE | 2021-10-01 08:05 | NUR ---
DR NAVARRETE IN TO SEE PT.
--- NOTE | 2021-10-01 08:12 | NUR ---
FIO2 TURNED DOWN TO 40% PER DR NAVARRETE.
--- NOTE | 2021-10-01 11:01 | NUR ---
PATIENT SITTING UP ON COUCH. RN NOTIFIED OF ELEVATED BP. IN ROOM. STATES SHE IS NERVOUS ABOUT TAKING HIM HOME (IN HER OPINION) HE LOOKS WORSE THAN YESTERDAY. RN NOTIFIED
--- NOTE | 2021-10-01 11:12 | NUR ---
RECTOMMIER PROVIDED FOR PATIENT.
--- NOTE | 2021-10-01 11:15 | NUR ---
IN TO DO ASSESSMENT, LUNGS HAVE LESS CRACKLES AND COARS SOUNDS THAN PREVIOUS ASSESSMENT. PT STATES HE IS HAVING DIFFICULTY FALLING ASLEEP DUE TO FEELING SHORT OF BREATH AND WAKING UP HAVING APNEIC PERIODS THAT SET THE MONITOR ALARM OFF AND WAKE HIM UP. IN THE ROOM, UPDATED OF PLAN OF CARE. PT HAVING SOME COUGHING STILL, SEEMS TO BE LESS.
--- NOTE | 2021-10-01 11:30 | NUR ---
DR NAVARRETE ON UNIT AND GIVEN UPDATE ON PT'S SOB, LESS CRACKLES IN LUNGS AND PTS DESIRE TO GET TO HIS CARDIOLOGY APPOINTMENT TOMORROW.
--- NOTE | 2021-10-01 13:30 | NUR ---
PT SLEEPING UP IN CHAIR, DROWSY BUT AWAKENS EASILY. IN ROOM, UPDATED ON PLANS. 20MG IV LASIX GIVEN.
--- NOTE | 2021-10-01 13:41 | NUR ---
PATIENT RESTING IN RECLINER WITH EYES CLOSED, CALL LIGHT IN EASY REACH. SITTING ON PATIENTS BED.
--- NOTE | 2021-10-01 16:00 | NUR ---
PT ASSISTED BACK TO BED TO TRY TO SLEEP, SLEEPING ON LEFT SIDE. RR 22, SPO2 95%, RESP LOOK SLIGHTLY LABORED. LUNGS CONT TO HAVE CRACKLES MIDWAY UP RIGHT SIDE ALTHOUGH THEY ARE SOUNDING LESS. PT REPORTS HAVING DIFFICULTY SLEEPING DUE TO SHORTNESS OF BREATH AND GETTING COMFORTABLE. HAS BEEN SITTING UP IN THE CHAIR FOR THE LAST FEW HOURS, FOUND SITTING UP WITH HEAD DOWN ON CHEST, ATTEMPTING TO SLEEP IN THIS POSITION. PT HAS HAD LESS COUGHING AND SPUTUM PRODUCTION THE LAST FEW HOURS.
[2021-10-01] MEDS ORDERED: GLIPIZIDE ER2.5 MG PO (16:10)
[2021-10-01] MEDS ORDERED: CALCITRIOL0.25 MCG PO (16:11)
--- NOTE | 2021-10-01 16:11 | NUR ---
RT IN TO SET UP CPAP, PT AWAKE WATCHING TV BUT STATES HE DOES WANT TO TRY WEARING CPAP TO SEE IF IT HELPS HIM REST.
[2021-10-01] MEDS ORDERED: TORSEMIDE20 MG PO (16:12)
--- NOTE | 2021-10-01 16:12 | NUR ---
MED REC COMPLETE
--- NOTE | 2021-10-01 16:51 | NUR ---
PT SAT UP AND REMOVED CPAP MASK IN ORDER TO DO SOME COUGHING AND SPIT UP SOME SPUTUM, SMALL BITS OF RED TINGE IN THICK SPUTUM. STATES REGARDING CPAP "I DO FEEL LIKE IT HELPS ME BREATHE BETTER".
--- NOTE | 2021-10-01 17:54 | NUR ---
PT SITTING UP AT BEDSIDE FOR DINNER. HR 100, RR 24, SPO2 90%. DENEIS NEEDS. IV POTASSIUM INFUSING, PT TOLERATING WELL.
--- NOTE | 2021-10-01 19:30 | NUR ---
REPORT RECIEVED FROM ASHISH MCCOY. PATIENT RESTING IN ROOM. BREATHING EQUAL AND UNLABORED. CALL LIGHT WITHIN REACH NO FUTHER NEEDS.
--- NOTE | 2021-10-01 19:45 | NUR ---
PATIENT ASSESSMENT COMPLETE. PATIENT ALERT AND ORIENTED X4. WATCHING TV WHILE RESTING IN BED. PATIENT LUNG SOUNDS HAVE CRACKLES THROUGHOUT BUT IMPROVING FROM LAST NIGHT. RR IS 20-25. OXYGEN SATURATIONS ARE 90-95% ON ROOM AIR. CPAP IN ROOM FOR WHEN SLEEPING. PATIENT STATES "I FEEL MUCH BETTER THAN YESTERDAY." DENIES SHORTNESS OF BREATH AT THIS TIME. HEART RATE 90-110 BPM. SINUS TACH. AFEBRILE. URINE OUTPUT YELLOW AND CLEAR. NO BM. BOWEL TONES ACTIVE. DENIES ANY NAUSEA. CMST INTACT. GENERALIZED EDEMA IN BLE. SKIN INTACT. IV SITE PATENT. POTASSIUM 40 MEQ RUNNING AT 131 MLS/HR. NO QUESTIONS AT THIS TIME. CALL LIGHT WITHIN REACH NO FUTHER NEEDS.
--- NOTE | 2021-10-01 21:00 | NUR ---
PATIENT SLEEPING IN BED. CPAP APPLIED. PRESSURE OF 10 AND FIO2 30%. BREATHING EQUAL AND UNLABORED. DENIES ANY NEEDS AT THIS TIME. CALL LIGHT WITHIN REACH.
--- NOTE | 2021-10-01 21:36 | NUR ---
PATIENT RECIEVED MELATONIN 3 MG PO AND TESSALON PERLE 100 MG PO FOR COUGH. CPAP APPLIED. OXYGEN SATURATIONS AND RR WNL. BREATHING EQUAL AND UNLABORED. IN ROOM. NO QUESTIONS AT THIS TIME. CALL LIGHT WITHIN REACH NO FUTHER NEEDS.
--- NOTE | 2021-10-01 22:50 | NUR ---
PATIENT ASLEEP. CPAP APPLIED PRESSURE OF 10 AND FIO2 30%. BREATHING EQUAL AND UNLABORED. OXYGEN SATURATIONS AND RR WNL. IN ROOM AT BEDSIDE. CALL LIGHT WITHIN REACH. NO QUESTIONS OR FUTHER NEEDS.
--- NOTE | 2021-10-01 23:30 | NUR ---
PATIENT ASSESSMENT COMPLETE. ALERT AND ORIENTED X4. LUNG SOUNDS ARE CLEAR IN THE UPPER LOBES AND HAVE CRACKLES IN THE BASES. PATIENT IS ON CPAP PRESSURE OF 10 AND 30% FIO2 FOR SLEEP. RR IS 18-25. OXYGEN SATURATIONS ARE 90-95%. BREATHING EQUAL AND UNLABORED. HEART RATE 80-90 SINUS RHYTHM. AFEBRILE. URINE OUT IS YELLOW AND CLEAR. NO BM. BOWEL TONES ACTIVE. CMST INTACT. DENIES PAIN, SHORTNESS OF BREATH OR [place]. PRESENT IN ROOM. CALL LIGHT WITHIN REACH NO FUTHER NEEDS.
--- NOTE | 2021-10-02 01:30 | NUR ---
PATIENT MOVED FROM BED TO CHAIR. PATIENT WANTED CPAP OFF. OXYGEN SATURATIONS ARE 90-94%. RR 18-25. BREATHING EQUAL AND UNLABORED. PRESENT IN ROOM NO QUESTIONS AT THIS TIME. CALL LIGHT WITHIN REACH NO FUTHER NEEDS.
--- NOTE | 2021-10-02 03:00 | NUR ---
PATIENT ASLEEP IN CHAIR. PATIENT HAS CPAP OFF. BREATHING EQUAL AND UNLABORED. RR IS 18-25. OXYGEN SATURATIONS ARE 90-95%. CALL LIGHT WITHIN REACH NO FUTHER NEEDS.
--- NOTE | 2021-10-02 05:00 | NUR ---
PATIENT ASSESSMENT COMPLETE. ALERT AND ORIENTED X4. PATIENT WEIGHED AND NOW SITTING IN CHAIR. LUNG SOUNDS ARE CLEAR IN THE UPPER LOBES AND CRACKLES HEARD IN THE BASES. OXYGEN SATURATIONS ARE 90-94% ON ROOM AIR. RR IS 16-25. BREATHING EQUAL AND UNLABORED. DENIES FEELING SHORT OF BREATH. HEART RATE 80-90 SINUS RHYTHM. AFEBRILE. DENIES ANY PAIN. URINE OUTPUT YELLOW AND CLEAR. NO BM. BOWEL TONES ACTIVE. CMST INTACT. BLE GENERALIZED EDEMA. IV SITE PATENT. NO QUESTIONS AT THIS TIME. IN ROOM. CALL LIGHT WITHIN REACH NO FUTHER NEEDS.
--- NOTE | 2021-10-02 08:18 | NUR ---
PATIENT ASLEEP IN CHAIR, CPAP IN PLACE. ON COUCH. WOKE PATIENT FOR BREAKFAST. FRESH WATER PROVIDED. RT IN TO SEE PATIENT. PATIENT STATES HE SLEPT BETTER LAST NIGHT THAN HE HAS IN QUITE SOME TIME. WASHCLOTHS PROVIDED FOR PATIENT TO WASH UP AFTER BREAKFAST. BREAKFAST FOR ORDERED. CALL LIGHT IN EASY REACH
--- NOTE | 2021-10-02 09:00 | NUR ---
ASSESSMENT COMPLETE. PATIENT SITTING IN CHAIR AND WATCHING TV. PT'S IN ROOM. PT REPORTS FEELING A LOT BETTER FROM WHEN HE CAME IN, AND ENDORSES EVEN BEING ABLE TO GET SOME SLEEP LAST NIGHT. PT GIVEN AM MEDS AND TOLERATED THESE WELL. PT AND TO D/C HOME TODAY. ALL QUESTIONS ANSWERED BEST POSSIBLE. PT DENIES ANY SHORTNESS OF BREATH AT THIS TIME. EDEMA IN LEGS REMAINS PRESENT, 2+ IN PRETIBIAL DOWN TO FEET. CONTINUE TO MONITOR.
--- NOTE | 2021-10-02 10:57 | NUR ---
MED REC COMPLETE
--- NOTE | 2021-10-02 11:08 | NUR ---
PATIENT D/C HOME WITH AT 1105. PT EAGER TO GET HOME AND SHOWER BEFORE THEIR CARDIOLOGY APPT IN [facility] THIS AFTERNOON AT 4:00 PM. PT TAKES ALL PERSONAL BELONGINGS WITH HIM PRIOR TO LEAVING. IV SITE D/C - TIP INTACT.
== END 2021-10-02 11:05 | disposition home or self-care (01) | DRG 291 ==
LOC: ED 23:26 → CCU 10-01 01:25
PROVIDERS: ADMIT Internal Medicine; ATTEND Internal Medicine
PROC: 5A09357 Assistance with Respiratory Ventilation, Less than 24 Consecutive Hours, Continuous Positive Airway Pressure (ICD-10-PCS; principal; 2021-10-01)
DX: I13.0 Hypertensive heart and chronic kidney disease with heart failure and stage 1 through stage 4 chronic kidney disease, or unspecified chronic kidney disease (principal); I50.33 Acute on chronic diastolic (congestive) heart failure; Z20.822 Contact with and (suspected) exposure to COVID-19; N18.9 Chronic kidney disease, unspecified; I42.9 Cardiomyopathy, unspecified; E87.6 Hypokalemia; Z86.16 Personal history of COVID-19; G47.30 Sleep apnea, unspecified; E11.22 Type 2 diabetes mellitus with diabetic chronic kidney disease; I25.2 Old myocardial infarction; Z87.891 Personal history of nicotine dependence; Z79.899 Other long term (current) drug therapy
CPT/HCPCS: 36415; 71250; 80048; 80053; 83735; 83880; 84484; 85025; 85610; 93005; 93010; 94660; 96374; 99285-25; C9803; J0456; J0696; J1650; J1940; J3480; J7060; U0003

== ENCOUNTER 2022-06-10 12:58 | Observation (INO) | payer BC ==
[~2022-06-10] VITALS: Ht 188 cm; Wt 150.8 kg
[~2022-06-10 12:58] MED LIST changes: +CALCITRIOL0.25 MCG PO; +GLIPIZIDE ER2.5 MG PO; +NORVASC5 MG PO; +TORSEMIDE20 MG PO
[2022-06-10] MEDS ORDERED: ALLOPURINOL100 MG PO (14:01)
[2022-06-10] MEDS ORDERED: FARXIGA10 MG PO (14:01)
[2022-06-10] MEDS ORDERED: CARVEDILOL12.5 MG PO (14:01)
--- NOTE | 2022-06-10 17:37 | NUR ---
41 YEAR OLD MALE PATIENT ADMITTED TO ROOM 126 HOUSE CONV FROM ED VIA STRETCHER UNDER DR. LIM WITH DX OF STROKE. UPON ADMIT TO CCU PATIENT IS ALERT, ORIENTED AND COOPERATIVE. ABLE TO FOLLOW COMMANDS, NO DEFICITS NOTED. PATIENT STATES HE GOT DIZZY WHILE HAVING A BM AT HOME TODAY AT AROUND 1145. CODE STROKE WAS CALLED IN ED. PATIENT HAD EXPRESIVE ASPHASIA, NO ASPHASIA NOTED ON ADMIT. PATIENT IN ROOM. PATIENT WAS ABLE TO STAND FOR TRANSFER FROM STRETCHER TO TO BED. DENIES WEAKNESS OR SHORTNESS OF BREATH. ADMISSION PROCESS STARTED.
--- NOTE | 2022-06-10 18:20 | NUR ---
9 UNITS INSULIN GIVEN PER ACCUCHECK SS. SITTING UP IN BED TO TAKE DINNER.
--- NOTE | 2022-06-10 19:13 | NUR ---
REPORT TO NEXT SHIFT. PATIENT RESTING WITH HOB ELEVATED. NO DISTRESS NOTED.
--- NOTE | 2022-06-10 20:00 | NUR ---
REPORT RECEIVED FROM DAY SHIFT RN. PT IS AWAKE IN BED, WATCHING TV W/ HIS AT BEDSIDE. PT APPEARS COMFORTABLE W/ NO NOTED DISTRESS. DENIES PAIN/DISCOMFORT AT THIS TIME. VERBALIZES NEEDS APPROPRIATELY. CALL LIGHT AT BEDSIDE. VSS. WILL CONT TO MONITOR.
--- NOTE | 2022-06-10 20:20 | NUR ---
NOTIFIED OF PT'S BG OF 419; THIS RN INQUIRED ABOUT INSULIN SLIDING SCALE AND SCHEDULED LANTUS- NO NEW ORDERS RECEIVED AT THIS TIME. WILL ADMINISTER INSULIN ORDERED AND REPEAT ACCU CHECK PER PROVIDER'S ORDER.
--- NOTE | 2022-06-10 20:27 | EKG ---
[facility] [address] [place] [address] Signed Normal sinus rhythm Left axis deviation Inferior infarct , age undetermined T wave abnormality, consider lateral ischemia Abnormal ECG When compared with ECG of 30-SEP-2021 23:33, Inferior infarct is now present Inverted T waves have replaced nonspecific T wave abnormality in Lateral leads EKG discussed with [facility] credit verifier at time of ER visit, felt this did not meet STEMI criteria, patient had no chest pain. Significant history of cardiomyopathy. Confirmed by Alexis Lim MD () on 06/10/2022 8:27:45 PM Electronically Signed By: ALEXIS LIM MD 06/10/222026 PATIENT NAME: KARSON MELCHOR Electrocardiogram DATE OF : 84 PHYSICIAN: ALEXIS LIM MD REPORT #: [id number] REPORT IS CONFIDENTIAL AND NOT TO BE RELEASED WITHOUT AUTHORIZATION
--- NOTE | 2022-06-10 21:55 | NUR ---
PT AND HIS UPDATED ON LAB RESULT. REPEAT BG IMPROVING. ALL OF PT'S QUESTIONS REGARDING MEDICATIONS, LABS, MRI, AND PLAN OF CARE ANSWERED. SCDs APPLIED TO BLE ORDERED- PT TOLERATING. VSS. PT UP TO BR AND DENIES DIZZINESS. DENIES NUMBNESS AND TINGLING TO EXTREMITIES. NEURO ASSESSMENT COMPLETE- NO NOTED DEFICITS. CALL LIGHT IS AT HAND AND PT USES APPROPRIATELY. WILL CONTINUE TO MONITOR.
--- NOTE | 2022-06-11 01:00 | NUR ---
PT'S HOME BIPAP W/ O2 AT 2 LPM SET UP. PT VERBALIZES NEEDS APPROPRIATELY. CALL LIGHT AT HAND. VSS. NO DISTRESS NOTED. SNACKS PROVIDED TO PT PER PT REQUEST. WILL CONT TO MONITOR.
--- NOTE | 2022-06-11 03:43 | NUR ---
PT IS RESTING IN BED AND APPEARS COMFORTABLE. NO NOTED DISTRESS. RESPIRATIONS EVEN AND UNLABORED. CALL LIGHT WITHIN REACH. WILL CONT TO MONITOR.
--- NOTE | 2022-06-11 06:53 | NUR ---
RECEIVED CALL FROM THE LAB- PT'S TROPONIN TRENDING DOWN. MRI SCREENING FORM REFAXED PER REQUEST FROM MRI STAFF. PT NOTIFIED OF LAB RESULT. VSS. CALL LIGHT AT HAND. WILL CONT TO MONITOR.
--- NOTE | 2022-06-11 07:35 | NUR ---
REPORT RECIEVED. RESTING IN BED. IS IN ROOM.
--- NOTE | 2022-06-11 08:00 | NUR ---
ACCUCHECK-266. HUMALOG INSULIN 5 UNITS SQ GIVEN. ASSESSMENT DONE.
--- NOTE | 2022-06-11 09:00 | NUR ---
UP TO BR TO VOID. IS STABLE ON FEET. BACK TO BED W/O INCIDENT. TOOK BREAKFAST WELL.
--- NOTE | 2022-06-11 09:20 | NUR ---
TO MRI VIA W/C.
--- NOTE | 2022-06-11 09:45 | NUR ---
RETURN TO ROOM 126. PATIENT SITTING UP IN BED WATCHING TV.
--- NOTE | 2022-06-11 11:45 | NUR ---
JF-[id number]. HUMALOG 9 UINTS SQ GIVEN.
--- NOTE | 2022-06-11 12:01 | NUR ---
DR. LIM HERE TO SEE PATIENT. DR. ANDERSON WENT OVER TO RESULTS OF THE MRI WITH PATIENT AND HIS . PLAN IS TO DISCHARGE PATIENT THIS AFTERNOON. NO NEURO DEFICITS NOTED.
[2022-06-11] MEDS ORDERED: CLOPIDOGREL75 MG PO (12:37)
[2022-06-11] MEDS ORDERED: LIPITOR40 MG PO (12:38)
[2022-06-11] MEDS ORDERED: ASPIRIN81 MG PO (12:38)
--- NOTE | 2022-06-11 12:59 | NUR ---
Spoke to Emily regarding RX for atorvastatin. Clarified that RX is for atorvastatin 80mg 1 tablet at hs #30 tablets (instead of atorvastatin 40mg #30 tablets)
--- NOTE | 2022-06-11 13:50 | NUR ---
DISCHARGE INSTRUCTIONS GIVEN WITH PATIENT UNDERSTANDING.
--- NOTE | 2022-06-11 14:30 | NUR ---
DISCHARGED TO HOME. TRANSPORTED OUT OF HOSPITAL BY DEMOGRAPHIC ANALYST USING W/C. PATIENT HERE TO TAKE HIM HOME.
== END 2022-06-11 14:30 | disposition home or self-care (01) ==
LOC: ED 12:58 → CCU 13:00
PROVIDERS: ADMIT Family Medicine; ATTEND Family Medicine
DX: I63.512 Cerebral infarction due to unspecified occlusion or stenosis of left middle cerebral artery (principal); Z20.822 Contact with and (suspected) exposure to COVID-19; E11.22 Type 2 diabetes mellitus with diabetic chronic kidney disease; N18.4 Chronic kidney disease, stage 4 (severe); I25.10 Atherosclerotic heart disease of native coronary artery without angina pectoris; N28.9 Disorder of kidney and ureter, unspecified; I25.2 Old myocardial infarction; I13.0 Hypertensive heart and chronic kidney disease with heart failure and stage 1 through stage 4 chronic kidney disease, or unspecified chronic kidney disease; I50.9 Heart failure, unspecified; R29.700 NIHSS score 0; R79.89 Other specified abnormal findings of blood chemistry; R47.81 Slurred speech; Z79.899 Other long term (current) drug therapy; Z87.891 Personal history of nicotine dependence
CPT/HCPCS: 36415; 70450; 70496; 70498; 70551; 71045; 80053; 80061; 83735; 84484; 85025; 85610; 85730; 93005; 93010; 99285-25; A9270; C9803; G0378; J1815; Q9967; U0003

== ENCOUNTER 2025-03-15 20:40 | Emergency (ER) | payer BC ==
[~2025-03-15] VITALS: Ht 188 cm; Wt 142.0 kg
[~2025-03-15 20:40] MED LIST changes: +ALLOPURINOL100 MG PO; +ASPIRIN81 MG PO; +CARVEDILOL12.5 MG PO; +CLOPIDOGREL75 MG PO; +FARXIGA10 MG PO; +LIPITOR40 MG PO
[2025-03-15 21:00] LABS: BASOPHILS 0.5 % (0.2-1.2); EOSINOPHILS 2.7 % (0.8-7.0); LYMPHOCYTES 14.3 % (21.8-53.1); MCH 28.5 PG (25.7-32.2); MCHC 31.4 g/dL (32.3-36.5); MCV 90.9 fL (79.0-92.2); MONOCYTES 11.1 % (5.3-12.2); NEUTROPHILS 71.0 % (34.0-67.9); RBC 5.05 M/uL (4.63-6.08)
[2025-03-15] MEDS ORDERED: ATORVASTATIN CA40 MG PO (21:07)
[2025-03-15 21:26] LABS: ALT (SGPT) 33.0 U/L (14-59); AST (SGOT) 20.0 U/L (15-37); GLOMERULAR FILTRATION RATE,EST 21.0 mL/min (>60); PROTEIN, TOTAL 6.2 g/dL (6.4-8.2); UREA NITROGEN 43.0 mg/dL (7-18)
[2025-03-15] MEDS ORDERED: ASPIRIN 81 MG CHEW PO ONE (21:45)
[2025-03-15] MEDS ORDERED: FUROSEMIDE 40 MG/4 ML VIAL IV ONE (21:45)
[2025-03-15] MEDS ORDERED: HEPARIN SOD,PORK IN 0.45% NACL 500 ML IV SCH (22:45)
[2025-03-15] MEDS ORDERED: METOPROLOL TARTRATE 5 MG/5 ML VIAL IV ONE (22:45)
[2025-03-15 23:15] LABS: INR 1.23 (0.80-1.30); PROTIME 15.0 Sec (11.2-14.2)
[2025-03-16] MEDS ORDERED: METOPROLOL TARTRATE 5 MG/5 ML VIAL IV ONE (01:00)
[2025-03-16 01:15] VITALS: BP 157/112
--- NOTE | 2025-03-16 21:22 | EKG ---
[facility] [address] [address] [place] [address] Signed Normal sinus rhythm Possible Left atrial enlargement T wave abnormality, consider lateral ischemia Prolonged QT Abnormal ECG When compared with ECG of 10-JUN-2022 14:08, Criteria for Inferior infarct are no longer present Confirmed by Sagar Hill DO ([id number]) on 03/16/2025 9:22:09 PM Electronically Signed By: SAGAR HILL DO 03/16/252121 PATIENT NAME: MELCHORKARSON Electrocardiogram DATE OF : 84 PHYSICIAN: SAGAR HILL DO REPORT #: [id number] REPORT IS CONFIDENTIAL AND NOT TO BE RELEASED WITHOUT AUTHORIZATION
--- NOTE | 2025-03-16 21:22 | EKG ---
[facility] [address] [facility] [address] [place] [address] Signed Normal sinus rhythm Possible Left atrial enlargement Minimal voltage criteria for LVH, may be normal variant ( [place]xton product ) T wave abnormality, consider lateral ischemia Prolonged QT Abnormal ECG When compared with ECG of 15-MAR-2025 20:46, (Unconfirmed) No significant change was found Confirmed by Fransisco Hill DO ([id number]) on 03/16/2025 9:22:28 PM Electronically Signed By: FRANSISCO HILL DO 03/16/252121 PATIENT NAME: STEVE MELCHORSHUA FRANSISCO Electrocardiogram DATE OF : 84 PHYSICIAN: FRANSISCO HILL DO REPORT #: [id number] REPORT IS CONFIDENTIAL AND NOT TO BE RELEASED WITHOUT AUTHORIZATION
== END 2025-03-16 01:45 | disposition short-term general hospital (02) ==
LOC: ED 20:40
PROVIDERS: Internal Medicine
DX: I21.4 Non-ST elevation (NSTEMI) myocardial infarction (principal); I11.0 Hypertensive heart disease with heart failure; I50.9 Heart failure, unspecified; I25.10 Atherosclerotic heart disease of native coronary artery without angina pectoris; I25.2 Old myocardial infarction; E11.9 Type 2 diabetes mellitus without complications; Z87.891 Personal history of nicotine dependence; Z79.82 Long term (current) use of aspirin; Z79.899 Other long term (current) drug therapy
CPT/HCPCS: 36415; 71045; 80053; 83735; 83880; 84484; 85025; 85379; 85610; 85730; 93005; 93010; A9270; J1644; J1938